=== PATIENT | female | born 1980 | race Caucasian/White ===

== ENCOUNTER → 2017-04-13 | Outpatient (CLI) | payer BC ==
[~2017-04-13] MED LIST: DIFLUCAN 100MG100 MG PO; FLAGYL 250250 MG/TAB PO; FLAGYL500 MG PO; FOLIC ACID1 MG PO; GIANVI 3 MG-0.01 TAB PO; JANUVIA25 MG PO; LEVAQUIN 5500 MG/TA1 PO; NORCO 325 MG-7.1 TAB PO; PERCOCET 325 MG1 TA2 PO; PHENERGAN 25 TA25 MG PO; PRENATAL1 TA1 PO; PROBIOTIC-MAJOR PO; VIT B-6100 MG PO; VITAMIND3 5000 PO; ZANTAC 150MG T150 MG PO; ZOFRAN 4MG T4 MG/TAB PO
== END ==
LOC: COL.RAD 08:57
DX: K21.0 Gastro-esophageal reflux disease with esophagitis (principal); K65.1 Peritoneal abscess

== ENCOUNTER → 2017-04-21 | Outpatient (CLI) | payer BC | LOC: COL.RAD 11:19 | DX: R10.9 Unspecified abdominal pain (principal) | CPT/HCPCS: Q9967 ==

== ENCOUNTER → 2018-12-26 | Outpatient (CLI) | payer BC | LOC: MC.RAD 12:51 | DX: N63.21 Unspecified lump in the left breast, upper outer quadrant (principal) | CPT/HCPCS: G0279 ==

== ENCOUNTER → 2020-08-14 | Outpatient (CLI) | payer BC | LOC: MC.RAD 11:42 | DX: Z12.31 Encounter for screening mammogram for malignant neoplasm of breast (principal) ==

== ENCOUNTER → 2021-08-31 | Outpatient (CLI) | payer OTHER | LOC: MC.RAD 10:37 | DX: Z12.31 Encounter for screening mammogram for malignant neoplasm of breast (principal) ==

== ENCOUNTER → 2022-11-28 | Outpatient (CLI) | payer OTHER | LOC: MC.RAD 12:57 | DX: Z12.31 Encounter for screening mammogram for malignant neoplasm of breast (principal) ==